=== PATIENT | female | born 1990 | race African-American/Black ===

== ENCOUNTER 2017-01-01 09:39 | Emergency (ER) | payer MEDICAID ==
[~2017-01-01] VITALS: Ht 165.1 cm; Wt 50.0 kg
[2017-01-01 09:47] VITALS: BP 107/66
[2017-01-01] MEDS ORDERED: FLUO10CA63 PO (09:49)
[2017-01-01] MEDS ORDERED: VISCOUS LIDOCAINE 2% 15 ML UDC MM STA (10:16)
== END 2017-01-01 10:53 | disposition home or self-care (01) ==
LOC: ER 09:59
DX: N76.4 Abscess of vulva (principal); Z86.59 Personal history of other mental and behavioral disorders
CPT/HCPCS: 99283